=== PATIENT | male | born 1965 | race Caucasian/White ===

== ENCOUNTER 2019-12-29 08:20 | Emergency (ER) | payer OTHER ==
[~2019-12-29] VITALS: Ht 177.8 cm; Wt 90.7 kg
[2019-12-29] MEDS ORDERED: LISINOPRIL40 MG PO (08:32)
[2019-12-29] MEDS ORDERED: HYDROCHLOROTHIA25 MG PO (08:33)
[2019-12-29] MEDS ORDERED: ZOFRAN4 MG PO (12:21)
== END 2019-12-29 12:52 | disposition home or self-care (01) ==
LOC: ED 08:20
DX: R10.11 Right upper quadrant pain (principal); R11.10 Vomiting, unspecified; I10 Essential (primary) hypertension; Z88.2 Allergy status to sulfonamides; Z79.899 Other long term (current) drug therapy
CPT/HCPCS: 76705; 80053; 81001; 83690; 85025; 96361; 96374; 96375; 99284-25; J1885; J2405; J7030

== ENCOUNTER 2020-01-01 08:55 | Inpatient (IN) | payer OTHER ==
[~2020-01-01] VITALS: Ht 177.8 cm; Wt 90.7 kg
[~2020-01-01 08:55] MED LIST: HYDROCHLOROTHIA25 MG PO; LISINOPRIL40 MG PO; ZOFRAN4 MG PO
--- OUTSIDE RECORDS SUMMARY | 2020-01-01 08:58 | XMS ---
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 Kate has no Care Guidelines for this patient. [facility]12 MO.) [facility] NOTE: Visits indicate total known visits. ED/C VISIT TRACKING (12 MO.) 01/01/2020 08:[address] [facility] [place] TYPE: Emergency COMPLAINT: - ABDOMINAL PAIN, CRAMPING 12/29/2019 08:20 [facility] [place] TYPE: Emergency COMPLAINT: - ABD PAIN, VOMITING INPATIENT VISIT TRACKING (12 MO.) No inpatient visits to display in this time frame [email or web address]
--- NOTE | 2020-01-01 12:20 | NUR ---
PT TO FLOOR VIA STRETCHER. ABLE TO AMBULATE TO BED, STATES HE FEELS MUCH BETTER THAN WHEN HE CAME IN.
--- NOTE | 2020-01-01 14:10 | NUR ---
PATIENT RESTING IN BED. RN AND IN ROOM. VITAL SIGNS AND I&O DONE. HIBICLEANS PROVIDED AND EXPLANATIONS ABOUT HOW TO USE THEM. CALL LIGHT WITHIN REACH. NO OTHER NEEDS AT THIS TIME
--- NOTE | 2020-01-01 14:19 | NUR ---
PT SITTING UP IN BED DOZING AND WATCHING TV. IN CHAIR. ADVISED SURG WOULD BE AROUND 1730. ASSESSED VS. TAWNY IN ROOM TO PUT THEM IN.
[2020-01-01] MEDS ORDERED: MIRALAX119 GM PO (14:42)
[2020-01-01] MEDS ORDERED: IBU-200200 MG PO (14:43)
--- NOTE | 2020-01-01 14:43 | NUR ---
MED REC COMPLETE
--- NOTE | 2020-01-01 17:15 | NUR ---
PATIENT RESTING IN BED. IN ROOM. VITAL SIGNS AND I&O DONE. CALL LIGHT WITHIN REACH. NO OTHER NEEDS AT THIS TIME
--- NOTE | 2020-01-01 17:20 | NUR ---
SURGERY RN AND DR CASTAÑEDA HERE TO GET PT AND WRITE ORDERS.
--- NOTE | 2020-01-01 19:07 | NUR ---
RECIEVED REPORT FROM MORTEZA SEYMOUR. pt CURRENTLY IN SURGERY. WHITEBOARD UPDATED.
--- NOTE | 2020-01-01 20:03 | NUR ---
01/01/202002 Iliana Fowler PT ARRIVED TO PACU ON 6L VIA MASK WITH ORAL AIRWAY IN PLACE. RESP EVEN AND UNLABORED. VSS. PT NONAROUSABLE AND JAW THRUST NEEDED OFF AND ON TO MAINTAIN AIRWAY. 1957 JAW THURST NO LONGER NEEDED ORAL AIRWAY REMAINS IN PLACE.
--- NOTE | 2020-01-01 20:22 | EKG ---
[facility] [address] [facility] [place] [address] Signed Normal sinus rhythm Normal ECG No previous ECGs available Confirmed by NIYA SOTELO MD ([id number]) on 01/01/2020 8:22:13 PM Electronically Signed By: NIYA SOTELO MD 01/01/202021 PATIENT NAME: OVIDIO SCHROEDER Electrocardiogram DATE OF : 65 PHYSICIAN: NIYA SOTELO MD REPORT #: [id number] REPORT IS CONFIDENTIAL AND NOT TO BE RELEASED WITHOUT AUTHORIZATION
--- NOTE | 2020-01-01 21:01 | NUR ---
pt ARRIVED FROM SURGERY AT 2044. RECEIVED REPORT FROM MORTEZA HAMLIN. pt DROWSY ON 3L O2 SATS IN 90'S. ASSESSMENT DONE. DRESSING CDI. DRAIN HAS SCANT SS DRAINAGE. GALLAGHER DRAINING CONCENTRATED URINE. POST OP VITALS DONE. ANSWERED QUESTIONS FROM pt . EDUCATION DONE. BED ALARM ON. CALL LIGHT WITHIN REACH.
--- NOTE | 2020-01-01 22:05 | NUR ---
ROUNDED ON pt. RESTING IN BED. REQUESTED WATER. PROVIDED. NO NAUSEA AT THIS TIME. REPORTED PAIN WAS "DISCOMFORT" AT THIS TIME. NO FURTHER REQUESTS. CALL LIGHT WITHIN REACH.
--- NOTE | 2020-01-01 22:50 | NUR ---
IN TO DO POST OP VITALS. pt DENIES NAUSEA, REPORTED 4/10 PAIN. PRN PAIN MEDICATION GIVEN (SEE MAR). PROVIDED FRESH WATER AND JELLO. DRESSINGS CDI. KAYLEE DRAIN EMPTIED SS DRAINAGE. WARM BLANKET. NO OTHER REQUESTS AT THIS TIME. CALL LIGHT WITHIN REACH.
--- NOTE | 2020-01-02 00:01 | NUR ---
PT. RATED PAIN 4/10 AND TOLERABLE AT INCISION SITE. DENIED FURTHER NEEDS. PT. LEFT RESTING IN BED WITH CALL LIGHT IN REACH.
--- NOTE | 2020-01-02 00:07 | NUR ---
PULSE OX ALARMING, O2 SAT 89% WHEN SLEEPING 2L O2 APPLIED VIA NC. CALL LIGHT WITHIN REACH.
--- NOTE | 2020-01-02 01:08 | NUR ---
ROUNDED ON pt. RESTING WITH EYES CLOSED, RESPIRATIONS REGULAR AND UNLABORED. O2 SAT 94% ON 2L. CALL LIGHT WITHIN REACH.
--- NOTE | 2020-01-02 02:15 | NUR ---
IV ABX STARTED (SEE MAR). pt REPORTED PAIN IS "OKAY" NO REQUESTS AT THIS TIME. CALL LIGHT WITHIN REACH.
--- NOTE | 2020-01-02 02:46 | NUR ---
CALL LIGHT ANSWERED. IV PUMP ALARMING, DISTAL OCCLUSION. pt'S ARM POSITIONED ON PILLOW, IVF INFUSING WNL. WARM BLANKET PROVIDED. CALL LIGHT IN REACH. NO ADDITIONAL REQUESTS.
--- NOTE | 2020-01-02 04:55 | NUR ---
IN TO DO VITALS. ASSESSED SITES. SLIGHT SHADOWING NOTED ON MIDLINE DRESSING. PAYAL DRAIN EMPTIED. GALLAGHER EMPTIED. pt REPORTED 5/10 PAIN. PRN GIVEN (SEE MAR). PROVIDED WATER. NO FURTHER REQUESTS AT THIS TIME. CALL LIGHT WITHIN REACH.
--- NOTE | 2020-01-02 06:02 | CONS ---
[facility] [address] [place], [place] [address] Signed DATE OF CONSULTATION: 01/01/2020 CHIEF COMPLAINT: Right upper quadrant abdominal pain. HISTORY OF PRESENT ILLNESS: Ovidio is a 54-year-old gentleman, who has been in our emergency room 3 days ago with right upper quadrant abdominal pain. The ultrasound of the gallbladder was unremarkable. He was discharged to home. He came back today with continued right upper quadrant abdominal pain and a white count of 12.1. The CT scan then revealed he had a retrocecal appendix with the tip near the gallbladder in the duodenum traveling all the way back to his cecum in the right mid quadrant. I have been asked to admit him as a general surgeon on-call. He was given cefepime, Flagyl, and IV fluids empirically with respect to his dehydration. PAST MEDICAL HISTORY: Hypertension. PAST SURGICAL HISTORY: Septoplasty and elbow surgery with metal remaining. SOCIAL HISTORY: He does not smoke or drink. Dr. Emily Morrison is his primary care provider, Natacha is his at [phone]. 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 He is a [employer]ology and did not want any blood products. FAMILY HISTORY: Significant diabetes in his mother, father, brother and other family members. REVIEW OF SYSTEMS: He had 10 systems reviewed and no new findings. ALLERGIES: Sulfa. MEDICATIONS: Lisinopril 40 mg p.o. daily and hydrochlorothiazide 25 mg p.o. daily. PHYSICAL EXAMINATION: VITAL SIGNS: His blood pressure is 118/78, pulse 73, respiratory rate 18, temperature is 100.2. He is 99% on room air. He is 5 feet 10 inches at 90 kg. GENERAL: Ovidio is a 54-year-old gentleman. He did not appear systemically ill or toxic. In fact, he was up walking around the room and conversing quite nicely. Electronically Signed By: GEORGINA CASTAÑEDA MD 01/02/20 0602 PATIENT NAME: OVIDIO SCHROEDER CONSULTATION DATE OF : 65 REPORT #: [id number] PHYSICIAN: GEORGINA CASTAÑEDA MD PCP: EMILY MORRISON MD REPORT IS CONFIDENTIAL AND NOT TO BE RELEASED WITHOUT AUTHORIZATION [facility] [address] [place] [address] Signed LUNGS: Clear to auscultation bilaterally. HEART: Regular rate and rhythm. ABDOMEN: Generally soft and flat. With deep palpation, he had tenderness in the right mid quadrant just lateral to the rectus abdominis sheath. LABORATORY DATA: White blood count 12.1, hemoglobin 12, neutrophils 78, BUN 12, creatinine 0.88, glucose was 90. Urine specific gravity was up 1.070 with lots of ketones. His total bilirubin was up at 2.1, alkaline phosphatase was up a little at 120, AST normal at 16, ALT normal at 23, albumin is 4. His lipase was 9. RADIOGRAPHIC STUDIES: A CT scan and pelvis is reviewed along with the report and one can easily see the appendix traveling in the retrocecal fashion from the kidney toward the duodenum and the appendix with moderate inflammatory changes around it. ASSESSMENT/PLAN: Ovidio is a 54-year-old gentleman, who presents with acute appendicitis as described above. He has been admitted given IV fluids and antibiotics. I explained to Ovidio and his the location and function of the appendix. We discussed laparoscopic versus open appendectomy. I explained 3% of all appendectomies are done open and he may be in fact in this category. We did review the expected intraoperative and postoperative course along with the risks including, but not limited to bleeding, infection, scarring, change in contour, skin damage to bowel, appendiceal stump leak, postoperative intraabdominal abscess, incisional hernias, and other unforeseen comorbidities. They had expressed understanding and wished to proceed with surgery. Georgina Castañeda MD ALB/MODL /[id number] cc: MD Georgina Rocha MD Copies: EMILY MORRISON DMD Electronically Signed By: GEORGINA CASTAÑEDA MD 01/02/20 0602 PATIENT NAME: OVIDIO SCHROEDER CONSULTATION DATE OF : 65 REPORT #: [id number] PHYSICIAN: GEORGINA CASTAÑEDA MD PCP: EMILY MORRISON MD REPORT IS CONFIDENTIAL AND NOT TO BE RELEASED WITHOUT AUTHORIZATION [facility] [address] [facility] [place] [address] Signed GEORGINA CASTAÑEDA MD ~ Electronically Signed By: GEORGINA CASTAÑEDA MD 01/02/20 0602 PATIENT NAME: OVIDIO SCHROEDER CONSULTATION DATE OF : 65 REPORT #: [id number] PHYSICIAN: GEORGINA CASTAÑEDA MD PCP: EMILY MORRISON MD REPORT IS CONFIDENTIAL AND NOT TO BE RELEASED WITHOUT AUTHORIZATION
--- NOTE | 2020-01-02 06:02 | OR ---
[facility] [address] [place], [place] [address] Signed DATE OF OPERATION: 01/01/2020 SURGEON: Georgina Castañeda MD CHIEF COMPLAINT: Right upper quadrant abdominal pain. 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 Three days ago, he came into the emergency room with right upper quadrant abdominal pain. His ultrasound of the gallbladder was unremarkable. He came back 3 days later and he was still having right mid quadrant and right upper quadrant abdominal pain. His white count was 12.1. Urine specific gravity was elevated as well. At this time, he had a CT scan of the abdomen and pelvis performed. He had a retrocecal appendix with the tip near the gallbladder traveling over the top of the kidney, passed the duodenum back to the cecum, which is in the right mid quadrant. No obvious abscess, but quite a bit of inflammatory changes in that area. Consequently, I was asked to admit him as a general surgeon on-call. He was started on his IV fluids for hydration and given cefepime and Flagyl. I had met with Ovidio and his here in the hospital. I explained to them the above findings. We had reviewed the location of function of the appendix. We discussed laparoscopic versus open appendectomy. Specifically, I explained to Ovidio and his that given the position of his appendix, this could very well become open appendectomy. We reviewed the expected intraop and postop course. They understand there is risk including, but not limited to bleeding, infection, scarring, change in contour of the skin, damage to the bowel, appendiceal stump leak, postoperative intraabdominal abscess, incisional hernias, and other unforeseen comorbidities. They had expressed understanding wished to proceed. PROCEDURE NOTE: Ovidio was taken into the operating room and placed in a supine position under general endotracheal tube anesthesia. He was already on preoperative antibiotics along with subcutaneous heparin. SCDs were utilized. A Gutierrez catheter was inserted with return of dark, but otherwise clear urine. He again was then prepped and draped in the usual sterile fashion. We still could not palpate any specific mass. We then placed our trocars in the usual positions under direct visualization of camera without difficulty. It took a minute to uncover the cecum in his right mid quadrant and indeed the appendix traveled posteriorly and then underneath the cecum and anteriorly up toward the liver. We could feel the induration with the tip of our laparoscopic instruments. The only way to access that appendix would be to roll the entire right colon over toward the midline. With him an inflammatory changes that he had, it was not safe to do it Electronically Signed By: GEORGINA CASTAÑEDA MD 01/02/20 0602 PATIENT NAME: OVIDIO SCHROEDER OPERATIVE REPORT DATE OF : 65 REPORT #: [id number] PHYSICIAN: GEORGINA CASTAÑEDA MD PCP: EMILY MORRISON MD REPORT IS CONFIDENTIAL AND NOT TO BE RELEASED WITHOUT AUTHORIZATION [facility] [address] [place] [address] Signed laparoscopically. Consequently, we converted him to an open procedure. We used a periumbilical midline incision and eventually had to extend it somewhat cephalad as well. We had to bring out our Bookwalter retractor and we had to ask another nurse to scrub in to help with the procedure. It took a few minutes then to free up the white line of Toldt to work our way through this tremendous amount of inflammatory changes and a small amount of abscess and pus in that area. We worked our way around the hepatic flexure all the way over top of the anterior duodenum. The tip of the appendix was near the gallbladder and duodenum and inflammatory changes actually went up underneath the liver at short distance. Once the anatomy was well defined, we divided the base of the appendix from the cecum between Pean clamps and 0 Vicryl ties. Fortunately, that was not particularly inflamed. It took a few minutes then to dissect out the remainder of the appendix and we found that in the distal two-thirds it was ruptured. The mesentery coming up to the appendix was so thickened and inflamed, we were able to cut through with the cautery without any bleeding from the appendiceal artery. We followed this all the way up to the tip and passed the appendix off to the circulating nurse. She took pictures for photodocumentation. The right upper quadrant was then copiously irrigated and suctioned out until clear. We brought a #10 flat Delfino drain into the right mid quadrant of the abdomen to lie behind the cecum all the way up underneath the liver and circled it around near the duodenum itself. The right colon was then laid back in place and all the lap pads were removed as well. The omentum was then brought down over top of the small bowel. The drain was held in place at the level of the skin with 2-0 nylon suture. We closed the right subcostal trocar site with 0 Vicryl suture with our laparoscopic instruments before opening the abdomen. We then injected local anesthetic into the abdominal wall and we closed the midline fascia with interrupted [id number] #1 PDS sutures. The wound was irrigated and suctioned out until clear. The dermis was reapproximated with interrupted 3-0 subcuticular Monocryl sutures. We closed the 5 mm suprapubic trocar site and we closed the dermis of the right subcostal trocar site with 3-0 Monocryl suture. We then used beckie to bring the skin together for periumbilical midline incision. Dry gauze and tape were then applied. We left his Gutierrez catheter in place. Ovidio was then awakened from his anesthesia, extubated in the OR, and taken to recovery room in stable condition. Georgina Castañdea MD ALB/MODL /[id number] Electronically Signed By: GEORGINA CASTAÑEDA MD 01/02/20 0602 PATIENT NAME: OVIDIO SCHROEDER OPERATIVE REPORT DATE OF : 65 REPORT #: [id number] PHYSICIAN: GEORGINA CASTAÑEDA MD PCP: EMILY MORRISON MD REPORT IS CONFIDENTIAL AND NOT TO BE RELEASED WITHOUT AUTHORIZATION [facility] [address] [place], [place] [address] Signed cc: MD Georgina Rocha MD Copies: EMILY MORRISON DMD, ANDREW L MD ~ Electronically Signed By: GEORGINA CASTAÑEDA MD 01/02/20 0602 PATIENT NAME: OVIDIO SCHROEDER OPERATIVE REPORT DATE OF : 65 REPORT #: [id number] PHYSICIAN: GEORGINA CASTAÑEDA MD PCP: EMILY MORRISON MD REPORT IS CONFIDENTIAL AND NOT TO BE RELEASED WITHOUT AUTHORIZATION
--- NOTE | 2020-01-02 06:15 | NUR ---
IN TO REMOVE GALLAGHER. pt TOLERATED WELL. IN ROOM. pt REPORTED PAIN "IT'S STINGS WHERE HE TOOK THE TAPE OFF, BUT OTHER THAN THAT I'M OKAY." MD REMOVED TAPE AND GAUZE FROM MIDLINE AND LOWER LAP SITE. OKAY FOR pt TO SHOWER. CALL LIGHT WITHIN REACH.
--- NOTE | 2020-01-02 06:25 | NUR ---
pt ARRIVED FROM PACU AROUND 2100. DROWSY AT TIMES, ORIENTED. PAIN CONTROLLED WITH PRN MEDS X2. LAP SITES X2, MIDLINE INCISION, OPEN TO AIR. EDGES WELL APPROXIMATED, NO DRAINAGE. PAYAL DRAIN TO RLQ, DRESSING INTACT. NO NAUSEA. TOLERATING CLEAR LIQUIDS, 1500ML FLUID RESTRICTION. IVF AND IV ABX. USES CALL LIGHT APPROPRIATELY.
--- NOTE | 2020-01-02 07:45 | NUR ---
PATIENT ASLEEP IN BED. CALL LIGHT WITHIN REACH.
--- NOTE | 2020-01-02 07:50 | PATH ---
[facility] [address] [place], [place] [address] Signed ORDERING PHYSICIAN: Bjorn Gary MD PATIENT NAME: OVIDIO SCHROEDER GENDER: Emir : 1965 SPECIMEN(S): MOLECULAR PATHOLOGY RESULTS: SARS-CoV-2 Not Detected ADDITIONAL NOTES.: The [place] Fusion SARS-CoV-2 Assay is a multiplex real-time PCR (RT-PCR) in vitro diagnostic test intended for the qualitative detection of RNA from SARS-CoV-2 from individuals who meet COVID-19 clinical and/or epidemiological criteria. In general, SARS-CoV-2 RNA can be detected during the acute phase of infection. Positive results indicate the presence of SARS-CoV-2 RNA. Clinical correlation with patient history and other diagnostic information is necessary to determine patient infection status. Positive results do not rule out bacterial infection or co-infection with other viruses. Negative results do not preclude SARS-CoV-2 infection and should not be used as the sole basis for patient management decisions. Negative results must be combined with other clinical observations, patient history, and epidemiological information. The [place] Fusion SARS-CoV-2 Assay is not yet approved or cleared by the [place] FDA. When there are no FDA-approved or cleared tests available, and other criteria are met, FDA can make tests available under an emergency access mechanism called an Emergency Use Authorization (EUA). The EUA for this test is supported by the Germination Worker of Health and Human Service's (HHS's) declaration that circumstances exist to justify the emergency use of in vitro diagnostics for the detection and/or diagnosis of the virus that causes COVID-19. This EUA will remain in effect for the duration of the COVID-19 declaration justifying emergency of IVDs, unless it is terminated or revoked by FDA, after which the test may no longer be used. The [place] Fusion SARS-CoV-2 Assay is for use only under EUA in US laboratories certified under the Clinical Laboratory Improvement Amendments of 1988 (CLIA) to perform high complexity tests. [facility] is certified under CLIA to perform high complexity PATIENT NAME: OVIDIO SCHROEDER PATHOLOGY DATE OF : 65 REPORT #: [id number] PHYSICIAN: TAZ SPEAR PCP: EMILY MORRISON MD REPORT IS CONFIDENTIAL AND NOT TO BE RELEASED WITHOUT AUTHORIZATION [facility] [address] [place] [id number] Signed clinical laboratory testing. PERFORMING LABORATORY.: Molecular testing was performed by [facility] [address] [place], [place] [address], [place] [address] (Radio Mechanic Helper: Ketan Maloney D.O.; CLIA#: [id number]) Diagnostician: System Interface Pathologist Electronically Signed 01/02/2020 Copies: ~ PATIENT NAME: OVIDIO SCHROEDER PATHOLOGY DATE OF : 65 REPORT #: [id number] PHYSICIAN: TAZ PATHOLOGY PCP: EMILY MORRISON MD REPORT IS CONFIDENTIAL AND NOT TO BE RELEASED WITHOUT AUTHORIZATION
--- NOTE | 2020-01-02 09:20 | NUR ---
VITALS AND I&O'S DOCUMENTED. NO FUTHER NEEDS AT THIS TIME. CALL LIGHT WITHIN REACH.
--- NOTE | 2020-01-02 11:00 | NUR ---
Spoke with Janusz for CM assessment. He states he lives in a 2 story home, but only uses the main floor. He lives with his and denies needs. is present and states she will assist. Pt plans to dc to home when discharged. He does not use any DME and currently works for [employer].
--- NOTE | 2020-01-02 11:28 | NUR ---
PATIENT WASHED FACE AND DID AM CARE. NO FUTHER NEEDS AT THIS TIME. CALL LIGHT WITHIN REACH.
--- NOTE | 2020-01-02 12:10 | NUR ---
CALL INTO DR MADDY QIU ELEVATED BLOOD GLUCOSE ON THIS PT. NO NEW ORDERS AT THIS TIME AND LABS WILL BE CHAECKED AGAIN IN THE AM.
--- NOTE | 2020-01-02 13:07 | NUR ---
PATIENT AWAKE. VITAL SIGNS AND I&O'S DOCUMENTED. CALL LIGHT WITHIN REACH.
--- NOTE | 2020-01-02 18:35 | NUR ---
ENTERED ROOM IN RESPONSE TO CALL LIGHT, pt REQUESTED WARM BLANKETS AND PAIN MEDICATION. RETURNED WITH MEDICATION AND BLANKETS. MEDICATION ADMINISTERED WITHOUT ISSUE. EMPTIED URINAL, NOTATED ON BATHROOM DOOR. pt REPORTS NO NEEDS AT THIS TIME. pt LEFT LYING IN BED, SIDE RAILS UP, CALL LIGHT WITHIN REACH.
--- NOTE | 2020-01-02 19:20 | NUR ---
SHIFT REPORT RECEIVED FROM JYOTHI ALBARADO AND TIP STRETCHER AT BEDSIDE. PT AWAKE AND RESTING IN BED. MIDLINE MILIND, SITE WELL APPROXIMATED. LAP SITES X2 WNL. KAYLEE TO RIGHT QUADRANT ALSO WNL, SEROSANGUINEOUS IN COLOR. IV FLUIDS INFUSING, SITE WNL. NO NEEDS AT THIS TIME. CALL LIGHT IN REACH AND BOARD UPDATED.
--- NOTE | 2020-01-02 20:07 | NUR ---
SCHEDULED MED PROVIDED. PILLOW PROVIDED BETWEEN LEGS. NO OTHER NEEDS AT THIS TIME. CALL LIGHT IN REACH.
--- NOTE | 2020-01-02 20:15 | NUR ---
took pt vitals, checked i&os, no further requests, rn in for pm assesment,
--- NOTE | 2020-01-02 20:30 | NUR ---
ASSESSMENT COMPLETE, SCHEDULED MEDS GIVEN (SEE EMAR). IV ABX INFUSING, SITE WNL. PT REPORTS TOLERABLE 4/10 PAIN IN ABD, DENIES NAUSEA. VSS, PT RECENTLY PLACED ON 2LNC BY RT FOR RA O2 SAT OF 90%. LUNG SOUNDS CLEAR, IS AT BEDSIDE. MIDLINE DRESSING MILIND, WELL APPROXIMATED. NO SIGNS OF INFECTION. 8MLS OUTPUT TO ABD DRAIN, SEROSANGUINEOUS IN COLOR. NO FURTHER NEEDS, CALL LIGHT IN REACH. SCD'S ON.
--- NOTE | 2020-01-02 20:54 | NUR ---
SCHEDULED IV ABX INFUSING (SEE EMAR), IV SITE WNL. PT DEMONSTRATED USE OF IS, REACHED 625. FACIAL GRIMACING NOTED. NO FURTHER NEEDS, CALL LIGHT IN REACH.
--- NOTE | 2020-01-02 22:45 | NUR ---
PT RESTING IN BED WITH EYES CLOSED. RR EVEN AND UNLABORED. NO DISTRESS NOTED, 2LNC IN PLACE. IV FLUIDS AND ABX INFUSING, SITE WNL. CALL LIGHT IN REACH.
--- NOTE | 2020-01-02 23:24 | NUR ---
NEW BAG IV FLUIDS INFUSING, SITE WNL. NO NEEDS VERBALIZED, RR EVEN AND UNLABORED. CALL LIGHT IN REACH.
--- NOTE | 2020-01-03 01:32 | NUR ---
PT RESTING IN BED WITH EYES CLOSED, RR EVEN AND UNLABORED. NO DISTRESS NOTED, PT APPEARS COMFORTABLE. IV FLUIDS INFUSING, SITE WNL. 2LNC IN PLACE, CALL LIGHT IN REACH.
--- NOTE | 2020-01-03 02:24 | NUR ---
0200 iv abx infusing, site wnl. assessment also complete, no new changes or concerns. pt reports tolerable 4/10 abd pain, denies need for pain medication at this time. spo2 sat 97-98% on 2lnc, titrated down to 1lnc. hr wnl. pt denies passing gas as well as denies nausea. bt hypoactive. urinal emptied. scd's in place. pt assisted with repositioning and excess blankets removed. call light in reach.
--- NOTE | 2020-01-03 02:54 | NUR ---
IV ABX COMPLETE, FLUIDS RESUMED PER MD ORDERS. SITE WNL. NO ADDITIONAL NEEDS VERBALIZED. CALL LIGHT IN REACH.
--- NOTE | 2020-01-03 05:19 | NUR ---
vs and i&o's done. pt up sba with fww with help from clay velez from bed to [facility]. iv fluids infusing, site wnl. prn norco given for 5/10 abd pain (see emar). fresh ice given, urinal emptied. call light in reach. no further needs, call light in reach.
--- NOTE | 2020-01-03 05:19 | NUR ---
PT CALLED TO GET UP FROM BED, 1PA PT TO STANDING POSITION, SBA FWW TO THE CHAIR, RN IN FOR AM ASSESMENT AND PAIN MGNT, TOOK VITALS AND I&Os, CALL LIGHT IN REACH, LIGHTS OUT, PILLOWS FOR PT COMFORT ADDED, FRESH ICE WATER GIVEN, NO FURTHER REQUESTS AT THIS TIME, BED IS MADE
--- NOTE | 2020-01-03 05:57 | NUR ---
DR CASTAÑEDA AT RN STATION, PROVIDED PT UPDATE INCLUDING PAIN CONTROL, VOIDING, PO INTAKE. MD IN ROOM TO SEE PT.
--- NOTE | 2020-01-03 06:25 | NUR ---
new bag iv fluids hung and infusing per md orders, site wnl. call light in reach, no further needs verbalized.
--- NOTE | 2020-01-03 07:40 | NUR ---
0715: REPORT RECEIVED FROM BINH PRO. PT RESTING IN HIS CHAIR WITH HIS CALL SANDOVAL WITHIN REACH. PT STATES HIS PAIN IS A 4 WHICH IS TOLERABLE FOR HIM AT THIS TIME.
--- NOTE | 2020-01-03 08:08 | NUR ---
PT RESTING IN HIS CHAIR AND IS USING HIS IS. SAT IS 98% ON ROOM AIR AT THIS TIME. ABD INCISIONS CDI WITHOUT ANY S/S OF INFECTION NOTED. PT STATES HIS ABD PAIN IS A 4/10 WHICH HE STATES IS ACCEPTABLE. WILL CONTINUE TO MONITOR.
--- NOTE | 2020-01-03 09:00 | NUR ---
Pt ambulating in the ponce and doing well. Denies complaints.
--- NOTE | 2020-01-03 11:50 | NUR ---
PT RESTING IN BED. PT COVERED WITH BLANKET, ENCOURAGED TO CALL WHEN HE IS UP AND READY TO AMBULATE WITH HIS RN. PAIN ASSESSED, IS AT 4/10 WHICH HE STATES IS ACCEPTABLE. CALL LIGHT WITHIN REACH, SPOUSE IN ROOM. IV SITES ASSESSED AND APPEAR CDI.
--- NOTE | 2020-01-03 14:05 | NUR ---
PT RESTING IN BED, IN LOWEST POSITION. PT REPORTS LEVEL 4 PAIN AT THIS TIME, STATES IT IS ACCEPTABLE. URINAL EMPTIED. INCISIONS ALL APPEAR HEALTHY, W/O S/SX OF INFECTION. I.S. TEACHING REINFORCED AND ENCOURAGED. CALL LIGHT WITHIN REACH. PT STATES HE WILL AMBULATE AFTER HIS NAP.
--- NOTE | 2020-01-03 15:16 | NUR ---
Pt had slept for several hours this afternoon, he awoke to voice and is now getting ready to walk with the [employer] at this time. He states his pain reamins at a 4 which is tolerable to him.
--- NOTE | 2020-01-03 16:42 | NUR ---
ENTERED PT ROOM TO ENCOURAGE AMBULATION. PT WALKED HALF A LAP IN THE HALLWAY, USING SBA AND WALKER. PT REPORTS 4/10 PAIN AND THAT ITS ACCEPTABLE. THIS IS HIS 2ND WALK TODAY. ASSESSED ABD INCISIONS, ALL APPEARED UNCHANGED. PT LEFT LYING IN BED, SIDE RAILS UP REQUESTED, BED IN LOWEST POSITION, CALL LIGHT WITHIN REACH.
--- NOTE | 2020-01-03 21:00 | NUR ---
emptied pt urinal, took pt vitals, i&os in, rn to be in for pm assesment, gave fresh icewater, no further request at this time
--- NOTE | 2020-01-03 21:08 | NUR ---
pt in bed, cooperative, with assessment, on room air, clear lungs, abd distended lower abd, 2 R abd lap sites and midline open incisin with [address], area pink, dry, edges well approximated. low abd old michael site intact. dry. Not passing gas. awre of increasing ambulation, stated understanding, scds in place, ivf infusing, denies c/o pain, on fluid restriction
--- NOTE | 2020-01-03 23:20 | NUR ---
RESTING, EYES CLOSED, NO C/O PAIN, IVF INFUSING, SCDS IN PLACE
--- NOTE | 2020-01-04 02:50 | NUR ---
C/o 4/10 abd pain, more active bowel tones auscultated, denies passing gas. Medicated with 1 norco. Pt up walking hallways down, up and around nursing station. tolerated well 1pa, slow steady gait. Bed linen and gown changed. on fluid restriction, ivf infusing. scds in place
--- NOTE | 2020-01-04 04:44 | NUR ---
On room air, in bed, awakes easily, eyes closed, no resp distress, call light at hands reach, on fluid restriction, fresh apple juice given on requests. scds in place, denies passing gas. no further c/o pain
--- NOTE | 2020-01-04 05:35 | NUR ---
Pt awake, On room air, No further c/o pain or n/v, burping but denies passing gas rectally, midline incision with beckie, 2 lap sites dressing R abd, KAYLEE R abd drained 205cc ss drainage. abd distended low abd, scds in place, IVF infusing, no c/o adverse raction to IV abx, tolerating fluid restriction. Walked hallway x1. tolerated well. using urinal voiding qs.
--- NOTE | 2020-01-04 06:24 | NUR ---
PT CALLED, WANTED THE KAYLEE EMPTIED. EMPTIED AND RECORDED. DR CASTAÑEDA IN TO PT PRIOR TO PT CALLING. DECREASE IN IV FLUIDS ORDERED.
--- NOTE | 2020-01-04 06:31 | NUR ---
awake, Dr Loza in room examining pt a few minutes ago, IVF decreaed to 100cc/hr as per new orders, pt denies c/o pian or n/v. tolerating fluid restriction well
--- NOTE | 2020-01-04 07:00 | NUR ---
RECIEVED HANDOFF REPORT FROM LESLY PRO, AT PTs BEDSIDE. PT WOKE TO GREET US, WE INTRODUCED OURSELVES AND EXPLAINED THE EXCHANGE. PT HAD NO FURTHER COMMENTS TO INCLUDE IN HANDOFF REPORT. PT WAS IN 4/10 PAIN, LYING COMFORTABLY IN BED, SIDE RAILS UP, CALL LIGHT WITHIN REACH.
--- NOTE | 2020-01-04 07:10 | NUR ---
HANDOFF REPORT RECEIVED FROM STITCH BONDING MACHINE TENDER RN.
--- NOTE | 2020-01-04 12:00 | NUR ---
ENTERED ROOM TO ASSESS PT. PT WAS RESTING IN BED. PT WAS ALERT AND RESPONSIVE, REPORTING 5/10 PAIN, AND NAUSEA W/O VOMITTING. PT GIVEN ANTIEMETIC PER PRN ORDERS. ONCE NAUSEA RESOLVED, PRN PAIN MEDS GIVEN. PT WAS PUTTING OUT FULL KAYLEE BULBS QUICKLY, SO I'S AND O'S WERE REVIEWED AND WE NOTED THAT HE HAD >600MLs BETWEEN [id number]. DR CASTAÑEDA WAS NOTIFIED AND ORDERED A KAYLEE FLUID SAMPLE TO BE SENT TO THE LAB FOR UA AND AMYLASE ANALYSIS. PT LEFT LYING IN BED AT LOWEST POSITION, SIDE RAILS UP, CALL LIGHT WITHIN REACH. NO FURTHER NEEDS AT THIS TIME.
--- NOTE | 2020-01-04 12:35 | NUR ---
PT LAYING IN BED, IN QUITE A BIT OF PAIN.GAVE BLESSING, PT THANKED ME AND SHARED WITH HIS RN.
--- NOTE | 2020-01-04 14:20 | NUR ---
ENTERED PT ROOM TO ADMINISTER IV ABX ORDERED. PT WAS LYING IN BED COMFORTABLY AND REPORTING 4/10 PAIN, WITH NO N/V. KAYLEE DRAIN AND URINAL EMPTIED AND RECORDED ON BATHROOM DOOR. ABX HUNG AND STARTED PER ORDERS. PT LEFT LYING IN BED AT LOWEST POSITION, SIDE RAILS UP, CALL LIGHT WITHIN REACH. PT REPORTED NOT "FEELING LIKE WALKING AT THIS TIME" DUE TO FEELING TIRED AFTER LAST ANTIEMETIC MEDICATION GIVEN. NO FURTHER NEEDS AT THIS TIME.
--- NOTE | 2020-01-04 15:43 | NUR ---
PT WITH EMESIS OF 50ML OF GREEN BILE, PT DENIES FEELING NAUSEATED AT THIS TIME. KAYLEE DRAIN EMPTIED FRO 110ML OF SEROUS FLUID. PT DENIES OTHER NEEDS AT THIS TIME.
--- NOTE | 2020-01-04 16:11 | PATH ---
[facility] [address], [place] [address] Signed SPECIMEN(S): A APPENDIX SPECIMEN SOURCE: A. APPENDIX CLINICAL HISTORY: Acute appendicitis. FINAL PATHOLOGIC DIAGNOSIS: Appendix, appendectomy: - Acute perforated appendicitis. NAL:cml:C2NR MICROSCOPIC EXAMINATION: Histologic sections of all submitted blocks are examined by light microscopy. These findings, together with the gross examination, support the pathologic diagnosis. GROSS DESCRIPTION: The specimen, labeled "Ovidio Christiansen," and designated on the requisition "appendix," is received in formalin and consists of Specimen: Appendix with mesoappendix. Dimensions: 8.6 x 1.0 cm. Serosa: [place] focally congested with areas of disruption and bergeron-white exudate. Perforation: One full-thickness defect is present, 1.7 cm from the distal tip. Inking: Proximal resection margin inked blue. Mucosa: [place]-bergeron and granular. Fecalith: Not grossly identified. Additional: None. Construction Plumber sections are submitted in cassette (A1). FB (under the direct supervision of a pathologist) The Gross Description was prepared using a voice recognition system. The report was reviewed for accuracy; however, sound-alike word errors, addition and/or deletions may occur. If there is any question about this report, please contact Client Services. PERFORMING LABORATORY: The technical component was performed by [employer], [address] [place] [id number] (Cloth Tearer: Maggy Aranda MD; CLIA# [id number]). [facility], [address] [facility]. 107, PATIENT NAME: OVIDIO CHRISTIANSEN PATHOLOGY DATE OF : 65 REPORT #: [id number] PHYSICIAN: [facility] PATH[facility] PCP: EMILY MORRISON MD REPORT IS CONFIDENTIAL AND NOT TO BE RELEASED WITHOUT AUTHORIZATION [facility] [address] [facility] [address] [facility] [place] [address] Signed Trey Helm [id number] (CLIA# [id number]). Diagnostician: Dixie Ziegler MD Pathologist Electronically Signed 01/04/2020 Copies: ~ PATIENT NAME: OVIDIO CHRISTIANSEN PATHOLOGY DATE OF : 65 REPORT #: [id number] PHYSICIAN: [facility] PATHOLOGY PCP: EMILY MORRISON MD REPORT IS CONFIDENTIAL AND NOT TO BE RELEASED WITHOUT AUTHORIZATION
--- NOTE | 2020-01-04 16:27 | NUR ---
PT WITH EMESIS OF BILE. DR. CASTAÑEDA NOTIFIED OF EMESIS THIS AM AND X2 THIS AFTERNOON AND COLOR CHANGING TO BILE, UPDATED ON LAB RESULTS FROM KAYLEE DRAIN FLUID, ORDER TO MAKE PT NPO, CHANGE PROTINIX TO IV, DC LISINOPRIL AND ORDER VASOTEC 1.25MG Q6 IV, TO ORDER CREATININE ON KAYLEE FLUID AND THEN TO PLACE NG TUBE IF PT HAS ANOTHER EPISODE OF EMESIS, RBOV. PT NOW WALKING IN [address].
--- NOTE | 2020-01-04 16:40 | NUR ---
DR. CASTAÑEDA CALLED TO NURSING FLOOR TO ORDER CT UROGRAM/ABD/PELVIS WITH IV CONTRAST TO EVALUATE FOR RUGHT URETAL INJURY FOLLOWING APPENDECTOMY, RBOV.
--- NOTE | 2020-01-04 16:46 | NUR ---
ENTERED PT ROOM TO ASSIST PT WAS VOMITTING. ACCESSIBILITY LIFT TECHNICIAN AND PTs WITH HIM. ENSURED PT WAS SAFE SITTING UP AND SPLINTING HIS INCISIONS HE VOMITTED. EMESIS WAS GREEN IN COLOR. I LEFT TO PULL ANTIEMETIC MEDICATION ORDERED PRN. RETURNED SHORTLY WITH MEDICATION TO FIND THAT PT WAS NO LONGER NAUSEATED BUT WANTED TO AMBULATE. I, THE ACCESSIBILITY LIFT TECHNICIAN, AND PTs ALL DID A FULL LAP WITH HIM. HE RETURNED TO ROOM REQUESTING TO HAVE A BM AT THE TOILET. PT SAT SAFELY TO GO AND WAS INSTRUCTED TO PULL THE CALL LIGHT IF HE NEEDED ANYTHING, WE WOULD ALSO BE RIGHT OUTSIDE THE DOOR. PT WAS ABLE TO PASS GAS BUT UNABLE TO PASS STOOL. PT REQUESTED A SHOWER, HE FELT HE WAS ABLE TO SIT AND SHOWER HIMSELF. PT HAS NO ORDERS TO SHOWER SO WAS TOLD HE COULD USE A WASH CLOTH FOR HIS FACE. PT IS COMPLIANT WITH INSTRUCTIONS TO WASH FACE AND MOVE TO NPO STATUS PER DR ROSAS NEW ORDERS RELAYED BY BRENDA PRO (BRENDA PRO WAS DISCUSSING PTs CONDITION DURING THIS TIME). PT WAS ABLE TO STAND AT THE SINK AND WASH FACE AND BRUSH TEETH W/O DIZZINESS OR NAUSEA OR WEAKNESS. PT WAS RETURNED TO BED AND INFORMED OF CT SCAN DUE SOON PER DR ROSAS ORDERS VIA BRENDA PRO. PT CONFIRMED NO MORE NAUSEA, PAIN OF 5/10, AND NO FURTHER NEEDS AT THIS TIME. PTs ABX INFUSION STOPPED PER ORDERS. PT VOIDED 150MLs URINE IN TOILET HAT, AND KAYLEE OUTPUT WAS 100MLs, WRITTEN ON RECORD BOARD. PT LYING IN BED, CALL LIGHT WITHIN REACH, AT BEDSIDE.
--- NOTE | 2020-01-04 18:46 | NUR ---
PATIENT DID 2 LAPS AROUND MED SURG. WITH WALKER. HE ALSO DID HIS PM CARE. HIS AND I CHANGED HIS BED LINENS. PATIENT IS NOW RESTING.
--- NOTE | 2020-01-04 19:31 | NUR ---
pt resting, awakes easily, denies c/o pain or resp distress. KAYLEE emptied of 135cc dark yellow drainage, no smell, abd incision w/o changes. beckie in place. stated he passeed gas earlier in am, IVF infusing, NPO at bedside
--- NOTE | 2020-01-04 21:44 | NUR ---
Coop with assessment, med info r/t HS maed ans vasotec given. Walked hallways up and down and around ns station x2, toleratd very well, sat on toilet for a while, no results yet. IVf infusing. no c/o pain, at bedside
--- NOTE | 2020-01-04 23:58 | NUR ---
AWAKESN EASILY, RESTING, ON ROOM AIR, NO C/O PAIN OR RESP DISTRESS, ABD INCISION NO CHANGES. KAYLEE WITH DECREAED YELLOW DRAINAGE NOTED, IVF INFUSING, SCDS TAKEN OFF AT THIS TIME AT THIS REQUESTS. NPO STATUS
--- NOTE | 2020-01-05 01:38 | NUR ---
Up walking hallways x2 down, up and around [facility] station. tolered well. no c/o pain, not passing as, abd incision w/o changes. slight distention lower abd w/o changes. faint EPI. abd tender. midline incision with beckie intact. michael draining yellow-orange colored drainage. ivf infusing, no c/o adverse reaction to abx. NPO, did own mouth care.
--- NOTE | 2020-01-05 05:55 | NUR ---
PT CONTINUES NPO, NO EMESIS, ON ROOM AIR, MIDLINE ABD INCISION WITH SHAQUILLE, HEALING, 2 LAP SITES R ABD HEALING, KAYLEE DRAINED 610CC YELLOW COLORED DRAINAGE. USES URINAL, ABD DISTENDED LOWER ABD, TENDER, VERY EPI BOWEL TONES. BURPING. NO RECTAL GAS. VOIDING LIHGT IDALIA COLORED URINE. HAS WALKED 2X 2 LAPS EACH THIS SHIFT. WILL TAKE HIM FOR A WALK AGAIN AFTER COMPLETING THIS NOTE. SCDS ON. DECLINED TO TAKE PAIN MEDS. DOES OWN MOUTH CARE.
--- NOTE | 2020-01-05 06:23 | NUR ---
up for walk 2 laps around down/up and around nursing stations. On room air, tolerated well. KAYLEE emptied again , voided, sat on toilet for a few minutes, no bm, not passing rectal gas. medicated with Tylenol 650mg po 08/02 abd pain. bowel tones w/o changes, hypoactive, abd tender. no n/v this shift, back to bed
--- NOTE | 2020-01-05 07:58 | NUR ---
RECEIVED REPORT FROM LESLY PRO. PT APPEARS TO BE RESTING IN BED COMFORTABLY WITH RESPIRATIONS NOTED.
--- NOTE | 2020-01-05 08:15 | NUR ---
THIS RN IN PTS ROOM TO GIVE PT HIS AM MEDS AND DO ASSESSMENT. PT APPEARS TO BE IN GOOD SPIRITS TODAY WITH 3/10 PAIN AND NO NAUSEA. PT STATES HE WILL BE READY FOR A WALK LATER
--- NOTE | 2020-01-05 10:15 | NUR ---
THIS RN IN PTS ROOM TO SALINE LOCK PT SO HE CAN WALK AND SHOWER. THIS RN WILL RE-START INFUSIONS WHEN PT COMPLETES SHOWER
--- NOTE | 2020-01-05 10:59 | NUR ---
PATIENT AND I WALKED 2 LAPS AROUND MED SURG. PATIENT ALSO USED HIS WALKER. PATIENT JUST GOT DONE WITH HIS SHOWER BED LINENS CHANGED. PATIENT IS NOW SITTING UP IN HIS CHAIR.
--- NOTE | 2020-01-05 12:41 | NUR ---
THIS RN IN PTS ROOM TO ASSIST PT TO MAKE IV STOP BEEPING. PT STATED THAT HIS IV SITE FELT LIKE IT WAS BURNING. THIS RN FLUSHED THE SITE AND PT STATED THAT THIS DID NOT HURT, THIS RN SWITCHED FLUIDS TO OPPOSITE SIDES, PLACED A WARM BLANKET AT POTASSIUM IV INSERTION SITE AND SLOWED THE RATE OF THE POTTASSIUM. PT STATED THIS FELT MUCH BETTER.
--- NOTE | 2020-01-05 14:45 | NUR ---
PATIENT DID THREE LAPS AROUND MED SURG. WITH HIS . USING A WALKER. PATIENT IS NOW RESTING IN HIS BED WHILE WATCHING TV.
--- NOTE | 2020-01-05 15:43 | NUR ---
THIS RN IN PTS ROOM TO GIVE AFTERNOON MEDS. PT STATES PAIN/ SORENESS IS 4/10. PT HAS DONE TWO WALKS TODAY (2 LAPS AROUND UNIT EACH TIME), PT HAS NO NAUSEA AT THIS TIME, PT ALSO SHOWERED THIS AM. WITH PTS TYLENOL THAT THIS RN GAVE TO PT FOR SORE PAIN THIS RN ALLOWED PT TO HAVE A SIP OF 7UP PER PT REQUEST. PT STATES THE SMOKEY AIR IN HOSPITAL WAS DRYING OUT HIS THROAT. PT TOLERATED SIP WELL AND STATED THAT HIS THROAT FELT MUCH BETTER. PT STATED NO NEED FOR ANYTHING FURTHER AT THIS TIME, PT LAYING IN BED WITH CALL LIGHT WITHIN REACH
--- NOTE | 2020-01-05 19:20 | NUR ---
REPORT RECEIVED FROM DAY SHIFT RN. PT LYING IN BED ALERT AND ORIENTED. DENIES PAIN OR NAUSEA. IV ABX INFUSING. IV POTASSIUM INFUSING, PT DENIES PAIN WITH INFUSION. DENIES NEEDS AT THIS TIME. WHITE BOARD UPATED. CALL LIGHT IN REACH.
--- NOTE | 2020-01-05 20:24 | NUR ---
Charge nurse rounding note: pt up to br, minimum of assist. no c/o pain, ivf infusing, KAYLEE drainaed. SCDS off,
--- NOTE | 2020-01-05 20:45 | NUR ---
PT AMB TWO TIMES AROUND NURSING UNIT WITH SBA AND FWW. FRANCISCO FAIR. C/O FEELING "FLUSHED" X 2 AND "A LITTLE NAUSEOUS". PT REPORTS ANXIETY RELATED TO BEING IN HOSPITAL AND FEAR OF "MESSING SOMETHING UP IN HIS STOMACH". ALSO REPORTS RUQ "FEELING FULL". REPORTS PAIN IS TOLERABLE AT 4/10. BACK TO BED. CLEAN GOWN PROVIDED.
--- NOTE | 2020-01-05 21:10 | NUR ---
SPOKE WITH DR. CASTAÑEDA REGARDING PT ANXIETY. NEW TELEPHONE ORDERS RECEIVED VERIFIED WITH READ BACK METHOD.
--- NOTE | 2020-01-05 21:45 | NUR ---
EVENING ASSESSMENT COMPLETE. SCHEDULED MEDS ADMINISTERED PER EMAR. MIDLINE ABD INCISION WELL APPROXIMATED. NO REDNESS OR DRAINAGE NOTED. LAP SITES WNL. PAYAL DRAIN WITH CLEAR YELLOW DRAINAGE. PT DENIES PAIN OR NAUSEA. BT HYPOACTIVE. REPORTS PASSING FLATUS. PRN ADMINISTERED FOR ANXIETY/SLEEP. ICE CHIPS PROVIDED. NO FURTHER NEEDS. CALL LIGHT IN REACH.
--- NOTE | 2020-01-06 00:55 | NUR ---
PT RESTING IN BED WITH EYES CLOSED, NAD.
--- NOTE | 2020-01-06 02:37 | NUR ---
IV ABX INFUSING PER ORDER. IV BP MED ADMINISTERED OVER 5 MIN USING PUMP. 105 ML CLEAR YELLOW DRAINAGE EMPTIED FROM PAYAL DRAIN. PT DENIES PAIN OR NAUSEA. REPORTS HE HAS BEEN RESTING WELL.
--- NOTE | 2020-01-06 03:34 | NUR ---
PT UP TO AMB 2 LAPS AROUND NURSING UNIT WITH FWW AND SBA. FRANCISCO WELL. BACK TO BED. DENIES NAUSEA. PRN ADMINISTERED FOR ABD PAIN. ASSESSMENT COMPLETE. PT DENIES FURTHER NEEDS. CALL LIGHT IN REACH.
--- NOTE | 2020-01-06 06:20 | NUR ---
VS AND I&O COMPLETE. PT RESTING IN BED, DENIES NEEDS. CALL LIGHT IN REACH.
--- NOTE | 2020-01-06 07:15 | NUR ---
REPORT RECIEVED FROM MORTEZA RAMIREZ. PT RESTING IN BED, D5 LR INFUSING AT 75 ML/HR. NO COMPLAINTS AT THIS TIME. CALL LIGHT WITHIN REACH.
--- NOTE | 2020-01-06 08:34 | NUR ---
PT STATES HIS PAIN IS WELL CONTROLED AT A 4/10 AND HE DENIES THE NEED FOR ANY PAIN MEDICATION. INCISION SITES APPEAR HEALTHY. ABD APPEARS DISTENDED, ABD SOUNDS ACTIVE AND HE STATES HE HAD A BM YESTERDAY. KAYLEE DRAIN CONTINUES TO DRAIN A LARGE AMOUNT OF CLEAR YELLOW DRAINAGE. DR CASTAÑEDA AWARE OF PT'S STATUS. PT DENIES ANY NAUSEA OR NEW PROBLEMS AT THIS TIME. SEE ASSESSMENT.
--- NOTE | 2020-01-06 08:38 | NUR ---
IV FLUID RATE CHANGED ORDERED.
--- NOTE | 2020-01-06 10:22 | NUR ---
PATIENT AMBULATED IN HALLWAY 3 LAPS AROUND NURSES STATION, SBA FWW. PATIENT THEN TO BATHROOM AND BACK TO BED, SBA FWW. CALL LIGHT IN REACH. NO FURTHER NEEDS AT THIS TIME.
--- NOTE | 2020-01-06 11:16 | NUR ---
Pt sleeping, call peter within reach.
--- NOTE | 2020-01-06 13:30 | NUR ---
PT DENIES ANY NEW COMPLAINTS OR PROBLEMS. INCISION SITES APPEAR HEALTHY WITHOUT S/S OF INFECTION. PT CONTINUES TO EAT/DRINK A SCNAT AMOUNT OF HIS CLEAR LIQUID DIET HE STATES HE IS AFRAID OF GETTING NAUSEA. WILL CONTINUE TO MONITOR. SEE ASSESSMENT.
--- NOTE | 2020-01-06 13:33 | NUR ---
OVIDIO STATES HE WILL GO FOR ANOTHER WALK HERE IN A SHORT BIT. PT NOW RESTING IN HIS BED WITH HIS PRESENT IN THE ROOM AND HIS CALL SANDOVAL WITHIN REACH.
--- NOTE | 2020-01-06 14:17 | NUR ---
Pt ambulating in the halls with the use of his fww and his walking with him. He states he is doing well and that he feels strong and that his pain remains controled.
--- NOTE | 2020-01-06 15:47 | NUR ---
Pt sleeping, call peter within reach and the pt's is at the bedside.
--- NOTE | 2020-01-06 17:32 | NUR ---
Upon request the pt ambulated in the halls and walked 3 laps with the use of his fww and a sba. Janusz tolerated the walk well and denies any new problems.
--- NOTE | 2020-01-06 18:49 | NUR ---
TEMP 99.2, PT USING HIS IS AT THIS TIME.
--- NOTE | 2020-01-06 19:34 | NUR ---
REPORT RECEIVED FROM DAY SHIFT RN. PT LYING IN BED WITH EYES CLOSED, NAD. IVF INFUSING. WHITE BOARD UPDATED. CALL LIGHT IN REACH.
--- NOTE | 2020-01-06 20:30 | NUR ---
NEW PIV STARTED BY THIS RN, RIGHT WRIST, 20 GAUGE. KAYLEE DRAIN EMPTIED 15 MLS SEROUS DRAINAGE. URINAL EMPTIED. PRIMARY RN JAMES IN ROOM.
--- NOTE | 2020-01-06 20:40 | NUR ---
BIOTECH PRODUCTION SPECIALIST IN TO START PIV AFTER FAILED ATTEMPT BY THIS RN. PT FRANCISCO WELL. PIV IN LEFT AC DC'D WNL. IV ABX AND FLUIDS INFUSING PER ORDER.
--- NOTE | 2020-01-06 21:46 | NUR ---
ASSESSMENT COMPLETE. SCHEDULED MEDS ADMINISTERED PER EMAR. PRN ADMINISTERED FOR ABD PAIN. PT DENIES NAUSEA. MIDLINE INCISION WELL APPROXIMATED WITH SHAQUILLE. NO REDNESS OR DRAINAGE NOTED. LAP SITES WNL. PT REMAINS WELL WITHIN FLUID RESTRICTION. TEMP SLIGHTLY ELEVATED, ENCOURAGED IS USE. NO QUESTIONS OR CONCERNS. CALL LIGTH IN REACH.
--- NOTE | 2020-01-07 00:41 | NUR ---
IV ABX COMPLETE. PT REPORTS HE IS RESTING WELL. DENIES NEEDS.
--- NOTE | 2020-01-07 02:59 | NUR ---
SCHEDULED MEDS ADMINISTERED PER EMAR. PT DENIES PAIN OR NAUSEA. PAYAL DRAIN WITH 10 MLS OF SEROUS DRAINAGE. SCD'S REMOVED PER PT REQUEST TO "TAKE A BREAK". ICE CHIPS PROVIDED.
--- NOTE | 2020-01-07 03:47 | NUR ---
pt USED CALL LIGHT TO ASK TO GO ON A WALK. ONE LAP AROUND THE NURSES STATION. pt REQUESTED SOMETHING FOR NAUSEA. RN JAMES NOTIFIED.
--- NOTE | 2020-01-07 04:04 | NUR ---
PT REPORTS FEELING "FLUSHED AND NAUSEOUS" WHILE AMB IN HALLWAY WITH ARC WELDER. PRN ADMINISTERED.
--- NOTE | 2020-01-07 06:26 | NUR ---
VS AND I&O COMPLETE. PT DENIES PAIN OR NAUSEA. IVF INFUSING. PAYAL DRAIN WITH 15 ML CLEAR YELLOW DRAINAGE. NO FURTHER NEEDS. CALL LIGHT IN REACH.
--- NOTE | 2020-01-07 08:30 | NUR ---
THIS RN IN PTS ROOM TO DO MORNING ASSESSMENT AND GIVE MORNING MEDS. PT STATES PAIN IS 3.5/10 PT STATES THIS IS TOLERABLE AND THAT THE TYLENOL IS HELPING.
--- NOTE | 2020-01-07 10:31 | NUR ---
PATIENT UP TO BATHROOM AND BACK TO CHAIR, IND, IN ROOM. CALL LIGHT IN REACH. NO FURTHER NEEDS AT THIS TIME.
--- NOTE | 2020-01-07 10:34 | NUR ---
PT UP FOR A WALK AT THIS TIME.
--- NOTE | 2020-01-07 14:13 | NUR ---
PT UP WALKING AT THIS TIME. THIS RN TO GIVE PT HIS MEDS AFTER WALK
--- NOTE | 2020-01-07 14:25 | NUR ---
PATIENT HAS BEEN UP IN HALLWAYS. STAFF STATES NO NEW NEEDS. PLAN WILL STILL BE TO DISCHARGE HOME WITH FAMILY.
--- NOTE | 2020-01-07 14:36 | NUR ---
P IS ALERT, ORIENTED AND WATCHING TV. PT SAID HE HAS EATEN SOME TODAY, SO FAR NO NAUSEA. SEEMS ALITTLE APPRENHENSIVE ABOUT EATING, PT DID STATE HE FEELS WELL CARED FOR AND THAT HIS FEELS COMFORTABLE ENOUGH TO LEAVE HIM IN TUNNEL KILN FIRER CAPABLE HANDS. PT SAID HE PRAYS ON HIS OWN, GAVE BLESSING AND PT THANKED ME FOR VISIT
--- NOTE | 2020-01-07 17:37 | NUR ---
THIS RN IN PTS ROOM TO CHECK ON HIM. PT STATES HE IS NIBBLING ON FOOD AND HAS NO NAUSEA OR PAIN AT THIS TIME.
--- NOTE | 2020-01-07 18:15 | NUR ---
PT UP WALKING THE HALLS WITH AT THIS TIME. PT STATES NO NAUSEA OR INCREASED PAIN
--- NOTE | 2020-01-07 18:50 | NUR ---
PATIENT IN BED WATCHING TV, IN ROOM. PATIENT AMBULATED IN HALLWAY EARLIER WITH , IND. FRESH WATER GIVEN. CALL LIGHT IN REACH. NO FURTHER NEEDS AT THIS TIME.
--- NOTE | 2020-01-07 19:30 | NUR ---
REPORT RECEIVED FROM MORTEZA SANCHEZ. PATIENT AWAKE, RESTING IN BED, AT BEDSIDE. CALL LIGHT WITHIN REACH. IVF INFUSING WNL. PATIENT HAS NO COMPLAINTS OR NEEDS AT THIS TIME.
--- NOTE | 2020-01-07 20:20 | NUR ---
ASSESSMENT COMPLETE. SCHEDULED MEDS ADMINISTERED. PATIENT REQUESTS PRN PAIN MEDICATION FOR REPORTED 3/10 PAIN AND PRN ANTI-NAUSEA MED TO "STAY ON TOP OF SYMPTOMS". MIDLINE INCISION WELL APPROXIMATED, OPEN TO AIR, NO DRAINAGE NOTED. LAP SITES WNL. KAYLEE DRAIN WNL, YELLOW DRAINAGE NOTED. VSS. PT STATES NO OTHER NEEDS AT THIS TIME, WILL REASSESS PAIN AND NAUSEA. CALL LIGHT IN REACH.
--- NOTE | 2020-01-07 23:51 | NUR ---
CHECKED ON PATIENT, PT SLEEPING. BREATHING REGULAR AND UNLABORED. HOB ELEVATED. CALL LIGHT IN REACH. BED IN LOWEST POSITION. WILL CONTINUE TO MONITOR
--- NOTE | 2020-01-08 02:08 | NUR ---
ASSESSMENT COMPLETE. SCHEDULED MEDICATIONS ADMINISTERED. VSS. KAYLEE DRAIN EMPTIED- 20 ML CLEAR YELLOW DRAINAGE. URINAL EMPTIED. PATIENT DENIES ANY PAIN OR NAUSEA AT THIS TIME. ICE CHIPS REFILLED. CALL LIGHT IN REACH. NO FURTHER NEEDS.
--- NOTE | 2020-01-08 04:49 | NUR ---
CHECKED ON PATIENT, APPEARS TO BE RESTING COMFORTABLY. IVF INFUSING WNL. CALL LIGHT IN REACH. NO APPARENT NEEDS OR CONCERNS AT THIS TIME.
--- NOTE | 2020-01-08 06:35 | NUR ---
CHECKED ON PATIENT, IVF INFUSING WNL. VS AND I/O'S COMPLETE. DR. CASTAÑEDA IN ROOM TO CONSULT WITH PATIENT, REQUESTS EVERY OTHER STAPLE BE REMOVED FROM MIDLINE INCISION, WITH REST TO BE REMOVED AT FOLLOW UP OUTPATIENT APPT. SHAQUILLE REMOVED. PATIENT EDUCATED REGARDING EMPTYING PAYAL DRAIN, PATIENT DEMONSTRATED COMPETENCE VIA TEACHBACK AND PHYSICAL DEMONSTRATION OF EMPTYING DRAIN HIMSELF. ALSO EDUCATED REGARDING ANY CHANGES IN COLOR OR AMOUNT OF DRAINAGE AND WHAT TO REPORT. PT DEMONSTRATED EVIDENCE OF LEARNING. REPOSITIONED IN BED, ICE WATER REFRESHED, QUESTIONS AND CONCERNS ADDRESSED. PATIENT STATES NO PAIN AT THIS TIME AND IS EAGER TO DISCHARGE HOME.
--- NOTE | 2020-01-08 07:44 | NUR ---
Entered pt room for shift change report from Mame PRO and Dee RN (new car make ready mechanic). Pt was alert and greeted us in the room. Pt had no complaints or needs at this time and was pleasant and anticipating going home today, per his DC orders from Dr Loza. Pt was left lying in bed at lowest position, ride rails up, call light within reach.
[2020-01-08] MEDS ORDERED: AUGMENTIN 500-1 EACH PO (08:10)
[2020-01-08] MEDS ORDERED: FLAGYL500 MG PO (08:14)
[2020-01-08] MEDS ORDERED: NORCO 5-325 TA1 EACH PO (08:15)
--- NOTE | 2020-01-08 08:23 | NUR ---
PATIENT SITTING UP BED TAKING HIS BREAKFAST. WHITE BOARD UPDATED. SETS UP BATHROOM FOR SHOWER. CALL LIGHT WITHIN REACH. NO OTHER NEEDS AT THIS TIME
--- NOTE | 2020-01-08 09:37 | NUR ---
PATIENT SITTING UP IN BED. VITAL SIGNS AND I&O DONE. CALL LIGHT WITHIN REACH. NO OTHER NEEDS AT THIS TIME
--- NOTE | 2020-01-08 12:18 | NUR ---
PT ALERT, ORIENTED AND APPEARS TO BE MAKING PLANS TO DC. PT MENTIONED AGAIN HOW PLEASED HE IS WITH THE CARE HE HAS RECEIVED. STATED HE REALLY APPRECIATED MERA FROM PT FLOW COMING BY. GAVE BLESSING
--- NOTE | 2020-01-09 07:29 | DS ---
[facility] [address], [place] [address] Signed ADMISSION DATE: 01/01/2020 DISCHARGE DATE: 01/08/2020 FINAL DIAGNOSIS: Ruptured appendicitis. PROCEDURE: Laparoscopic converted to open appendectomy. HISTORY OF PRESENT ILLNESS: Ovidio is a 54-year-old gentleman, who had come into the emergency room with right upper quadrant abdominal pain. His ultrasound of the gallbladder was fine. He came back three days later with worsening pain. His white count was elevated and a CT scan showed that he had a retrocecal appendix with starting in the mid right abdomen up to the level of the gallbladder. Consequently, I had been asked to admit him as a general surgeon on-call. HOSPITAL COURSE: Ovidio was admitted as above. Started on cefepime, Flagyl, and IV fluids. He was quite dehydrated when he 1st got to us. We took him to the operating room that same day and rapidly converted him from a laparoscopic to an open appendectomy. We had to mobilize the entire right colon around the hepatic flexure all the way past the duodenum to get the colon up and the appendix uncovered. He had a flat abscess similar to the shape of a pancake. All that had to be evacuated and the drain was left in place. He had ruptured his appendix in the midportion. He went through an expected prolonged postoperative course. We kept him on cefepime and Flagyl throughout the stay. He had high drain output initially and we checked a creatinine level and amylase level and the drain came back fine. We also checked the CT urogram and it showed the ureters were quite adequate. As the days passed in, his drain output became thin serous and it is down to 10 mL this morning. Also, he slowly but surely regained his GI function. He is up to a soft diet and doing quite well. He is afraid to eat too much as he has had some nausea throughout his stay. However, he is much improved. He has good urine output and he has had multiple bowel movements. His abdomen is now soft and flat, nontender and his incision is healing nicely without any local signs or symptoms of infection. At this point, he actually asked me to go home this morning. DISCHARGE PLANS AND MEDICATIONS: Ovidio had seven full days of cefepime and Flagyl. We are going to send him home with Augmentin 500 mg one tablet p.o. b.i.d. for three additional days. Also Flagyl 500 mg one tablet p.o. t.i.d. for three additional days. Consequently, he will have 10 full days of antibiotics. We are going to leave his drain in place. He record that drain Electronically Signed By: GEORGINA CASTAÑEDA MD 01/09/20 0729 PATIENT NAME: OVIDIO SCHROEDER DISCHARGE SUMMARY DATE OF : 65 REPORT #: [id number] PHYSICIAN: GEORGINA CASTAÑEDA MD PCP: EMILY MORRISON MD REPORT IS CONFIDENTIAL AND NOT TO BE RELEASED WITHOUT AUTHORIZATION [address] [address] Signed output each day. We are going to remove 1/2 the beckie. He will follow a regular diet. He can resume his routine lisinopril and hydrochlorothiazide at home. I have asked him not to do any heavy pushing, pulling, or lifting over about 20 pounds. He can certainly perform his activities of daily living including walking up and down stairs and showering and bathing as usual. He is not to return to work at this point in time. We will have him back in the office here in about 5 to 7 days. He has expressed understanding and agrees the above plan. Georgina Castañeda MD ALB/MODL /[id number] cc: Emily Morrison MD Copies: EMILY MORRISON DMD ~ Electronically Signed By: GEORGINA CASTAÑEDA MD 01/09/20 0729 PATIENT NAME: OVIDIO SCHROEDER KATHIA DISCHARGE SUMMARY DATE OF : 65 REPORT #: [id number] PHYSICIAN: GEORGINA CASTAÑEDA MD PCP: EMILY MORRISON MD REPORT IS CONFIDENTIAL AND NOT TO BE RELEASED WITHOUT AUTHORIZATION
== END 2020-01-08 11:13 | disposition home or self-care (01) | DRG 340 ==
LOC: ED 08:55 → MS 08:56
PROVIDERS: ADMIT Colon & Rectal Surgery; ATTEND Colon & Rectal Surgery
PROC: 0DTJ0ZZ Resection of Appendix, Open Approach (ICD-10-PCS; principal; 2020-01-01 17:30)
PROC: 0WJG4ZZ Inspection of Peritoneal Cavity, Percutaneous Endoscopic Approach (ICD-10-PCS; 2020-01-01 17:30)
DX: K35.33 Acute appendicitis with perforation, localized peritonitis, and gangrene, with abscess (principal); Z20.828 Contact with and (suspected) exposure to other viral communicable diseases; I10 Essential (primary) hypertension; E86.0 Dehydration; E87.6 Hypokalemia; Z53.31 Laparoscopic surgical procedure converted to open procedure; Z88.2 Allergy status to sulfonamides; Z79.899 Other long term (current) drug therapy
CPT/HCPCS: 00840; 36415; 74177; 74178; 80048; 80053; 81001; 82150; 82570; 83690; 83735; 84100; 85025; 93005; 93010; 94760; 94762; 96361; 96368; 96372; 96376; 99285-25; C9113; C9803; G0378; J0692; J1100; J1170; J1644; J1885; J2001; J2405; J2550; J2704; J3010; J3480; J7030; J7060; J7121; Q9967; U0003